=== PATIENT | male | born 1965 | race African-American/Black ===

== ENCOUNTER 2017-06-03 07:03 | Emergency (ER) | payer OTHER ==
[2017-06-03 07:58] LABS: ALBUMIN 3.5 g/dL (3.4-5.0); ANION GAP 13.4 mmol/L (8-16); BILIRUBIN - TOTAL 0.28 mg/dL (0.2-1.3); CALCIUM 8.9 mg/dL (8.5-10.1); CARBON DIOXIDE 30.3 mmol/L (21.0-32.0); CREATININE - SERUM 1.4 mg/dL (0.6-1.3); POTASSIUM - SERUM 3.7 mmol/L (3.5-5.1); PROTEIN - SERUM 8.1 g/dL (6.4-8.2)
== END 2017-06-03 08:35 | disposition home or self-care (01) ==
LOC: D.ER 07:03
PROVIDERS: Family Medicine
DX: I10 Essential (primary) hypertension (principal)

== ENCOUNTER 2017-07-21 10:30 | Emergency (ER) | payer OTHER | END 2017-07-21 11:30 | disposition home or self-care (01) | LOC: D.ER 10:30 | DX: H66.91 Otitis media, unspecified, right ear (principal); R42 Dizziness and giddiness ==

== ENCOUNTER 2017-10-30 11:28 | Emergency (ER) | payer OTHER ==
[~2017-10-30] VITALS: Ht 170.2 cm; Wt 90.9 kg
[2017-10-30 11:32] VITALS: Ht 170.2 cm; Wt 90.9 kg
[2017-10-30] MEDS ORDERED: DICLOFENAC SODI50 MG PO (11:53)
[2017-10-30] MEDS ORDERED: NAPROSYN500 MG PO (11:53)
[2017-10-30] MEDS ORDERED: HCTZ25 MG PO (11:54)
[2017-10-30] MEDS ORDERED: VITAMIN B650 MG PO (11:54)
[2017-10-30] MEDS ORDERED: VITAMIN B-1100 M1 PO (11:55)
[2017-10-30] MEDS ORDERED: NEURONTIN 400400 MG PO (11:55)
[2017-10-30] MEDS ORDERED: BAYER CHEWABLE81 MG PO (11:55)
[2017-10-30] MEDS ORDERED: LIPITOR40 MG PO (11:56)
[2017-10-30] MEDS ORDERED: MECLIZINE HCL25 MG PO (11:56)
[2017-10-30] MEDS ORDERED: NORVASC10 MG PO (11:57)
[2017-10-30] MEDS ORDERED: HYDROCODONE-APA1 TAB PO (13:12)
[2017-10-30] MEDS ORDERED: AMOX TR-K CLV 475 ML PO (13:19)
[2017-10-30 14:45] VITALS: BP 169/99
== END 2017-10-30 14:23 | disposition home or self-care (01) ==
LOC: D.ER 11:28
DX: S03.2XXA Dislocation of tooth, initial encounter (principal); Y04.2XXA Assault by strike against or bumped into by another person, initial encounter; Y93.89 Activity, other specified; Y92.019 Unspecified place in single-family (private) house as the place of occurrence of the external cause; S02.609A Fracture of mandible, unspecified, initial encounter for closed fracture; S00.03XA Contusion of scalp, initial encounter

== ENCOUNTER 2019-11-03 19:03 | Emergency (ER) | payer OTHER ==
[~2019-11-03] VITALS: Ht 170.2 cm; Wt 100.0 kg
[~2019-11-03 19:03] MED LIST: AMOX TR-K CLV 475 ML PO; BAYER CHEWABLE81 MG PO; DICLOFENAC SODI50 MG PO; HCTZ25 MG PO; HYDROCODONE-APA1 TAB PO; LIPITOR40 MG PO; MECLIZINE HCL25 MG PO; NAPROSYN500 MG PO; NEURONTIN 400400 MG PO; NORVASC10 MG PO; VITAMIN B-1100 M1 PO; VITAMIN B650 MG PO
[2019-11-03 19:11] VITALS: Ht 170.2 cm; Wt 100.0 kg
[2019-11-03] MEDS ORDERED: TORADOL10 MG PO (20:04)
[2019-11-03] MEDS ORDERED: CLINDAMYCIN HC300 MG PO (20:04)
[2019-11-03 20:23] VITALS: BP 168/102
== END 2019-11-03 20:24 | disposition home or self-care (01) ==
LOC: D.ER 19:03
DX: L03.011 Cellulitis of right finger (principal); I10 Essential (primary) hypertension